=== PATIENT | male | born 1980 | race Caucasian/White ===

== ENCOUNTER 2019-09-06 12:35 | Emergency (ER) | payer BC ==
[~2019-09-06] VITALS: Ht 182.9 cm; Wt 90.9 kg
[2019-09-06 12:38] VITALS: BP 161/97; TEMP 98.3
[2019-09-06] MEDS ORDERED: NORCO 325 MG-51 TAB PO (13:35)
[2019-09-06 13:55] VITALS: PULSE 76
== END 2019-09-06 13:56 | disposition home or self-care (01) ==
LOC: COL.ER 12:35
DX: S83.005A Unspecified dislocation of left patella, initial encounter (principal); X50.1XXA Overexertion from prolonged static or awkward postures, initial encounter
CPT/HCPCS: L1846

== ENCOUNTER → 2020-08-10 | Outpatient (CLI) | payer BC ==
[~2020-08-10] MED LIST: NORCO 325 MG-51 TAB PO
== END ==
LOC: COL.RAD 12:46
DX: N50.89 Other specified disorders of the male genital organs (principal)

== ENCOUNTER 2022-04-08 13:39 | Emergency (ER) | payer BC ==
[~2022-04-08] VITALS: Ht 180.3 cm; Wt 95.5 kg
[2022-04-08 13:46] VITALS: TEMP 97.8
[2022-04-08 14:46] VITALS: BP 148/98; PULSE 89
== END 2022-04-08 14:46 | disposition home or self-care (01) ==
LOC: COL.ER 13:39
DX: S43.005A Unspecified dislocation of left shoulder joint, initial encounter (principal); Z28.310 Unvaccinated for COVID-19; W22.8XXA Striking against or struck by other objects, initial encounter; Y92.89 Other specified places as the place of occurrence of the external cause; Y93.89 Activity, other specified

== ENCOUNTER → 2023-02-26 | Outpatient (CLI) | payer BC ==
[~2023-02-26] MED LIST changes: +ASPIRIN 81M81 MG/TA2 PO; +CEPHALEXIN500 M1 PO; +CLARITIN 1010 MG/TAB PO; +MULTAQ400 MG PO; +NASAL MOISTURIZ45 ML NS; +PEPCID 20MG TAB20 MG PO; +PROTONIX20 MG PO; +TOPROL XL 50MG50 MG PO
== END ==
LOC: COL.RAD 14:22
DX: K57.92 Diverticulitis of intestine, part unspecified, without perforation or abscess without bleeding (principal)
CPT/HCPCS: Q9967